=== PATIENT | female | born 1940 | race Caucasian/White ===

== ENCOUNTER 2017-06-04 06:30 | Emergency (ER) | payer MEDICARE, BC ==
[2017-06-04] MEDS ORDERED: Dexamethasone 4 MG TAB ONE (06:51)
== END 2017-06-04 06:58 | disposition home or self-care (01) ==
LOC: SCSER 06:30
DX: M75.52 Bursitis of left shoulder (principal); D69.3 Immune thrombocytopenic purpura
CPT/HCPCS: 99283; J8540

== ENCOUNTER 2017-11-16 09:18 | Outpatient (CLI) | payer MEDICARE, BC ==
--- NOTE | 2017-11-18 15:54 | MMO ---
MAMMOGRAM DIGITAL SCREENING BILATERAL: DATE: 11/16/17 HISTORY: 77-year-old female for routine bilateral screening mammogram. COMPARISON: 11/12/16, 11/12/15, and 10/31/14. TECHNIQUE: Digital mammographic views. Computer-aided detection (CAD) utilized. FINDINGS: There are scattered areas of fibroglandular density. There is no evidence of suspicious mass, suspicious calcifications, or architectural distortion. The re is no significant interval change since the prior mammogram. IMPRESSION: 1. BIRADS 1 - Negative. 2. Recommendation: routine bilateral annual screening mammogram (unless the patient develops suspici ous clinical findings that would warrant earlier imaging follow up). santa [] POS: [facility]
== END 2017-11-16 09:19 | disposition home or self-care (01) ==
LOC: SCSMAMMO 09:18
PROVIDERS: ATTEND Obstetrics & Gynecology
DX: Z12.31 Encounter for screening mammogram for malignant neoplasm of breast (principal)
CPT/HCPCS: 77067

== ENCOUNTER 2018-07-31 08:47 | Outpatient (CLI) | payer MEDICARE, BC ==
[2018-07-31] MEDS ORDERED: Gadobenate Dimeglumine 529 MG/1 ML (20ML VIAL) ONE (09:00)
[2018-07-31 10:14] LABS: Estimated GFR-MDRD - POC Greater than 90
--- NOTE | 2018-07-31 11:27 | MRI ---
MRI BRAIN WITH AND WITHOUT IV CONTRAST: HISTORY: Senile degeneration of brain, not elsewhere classified. Forgetfulness. FINDINGS: No restricted diffusion is seen. No evidence of infarct, acute hemorrhage, midline shift, or abnorma l extraaxial fluid collections noted. No mass or abnormal post contrast enhancement is seen. There is a small focus of hemosiderin deposit at the posterior aspect of the left parietal lobe, likely fro m a tiny remote hemorrhage. The ventricular size is appropriate, and the basilar cisterns are patent . Multiple foci of T2 prolongation in the periventricular white matter are consistent with chronic s mall vessel ischemic disease. There is fluid in the paranasal sinuses. IMPRESSION: 1. No evidence of acute intracranial process or mass. 2. Chronic small vessel ischemic disease. POS: [facility]
== END 2018-07-31 08:48 | disposition home or self-care (01) ==
LOC: SCSMRI 08:47
PROVIDERS: ATTEND Psychiatry & Neurology Neurology
DX: G31.1 Senile degeneration of brain, not elsewhere classified (principal); G93.89 Other specified disorders of brain
CPT/HCPCS: 70553; 82565

== ENCOUNTER 2018-12-01 14:49 | Outpatient (CLI) | payer MEDICARE, BC ==
--- NOTE | 2018-12-01 15:56 | ULT ---
EXAM: Left lower extremity venous Doppler US HISTORY: left lower extremity edema and pain FINDINGS: Grayscale, color-flow, Doppler evaluation, spectral analysis of the left lower extremity venous struc tures is performed with 2-D imaging. The left common femoral, superficial femoral, popliteal, posterior tibial, proximal greater saphenous and profunda femoral veins are imaged. There is normal luminal compressibility, flow, and augmentation the visualized deep venous structures of the left lower extremity. IMPRESSION: No evidence of a deep vein thrombosis in the left lower extremity.
== END 2018-12-01 14:50 | disposition home or self-care (01) ==
LOC: ULT 14:49
PROVIDERS: ATTEND Nurse Practitioner Family
DX: M79.605 Pain in left leg (principal)